=== PATIENT | female | born 1990 | race Caucasian/White ===

== ENCOUNTER → 2016-04-02 | Outpatient (CLI) | payer BC ==
[~2016-04-02] MED LIST: ALBU1AER9 INH; BCPILLS PO; MISC80CA PO; MISCCAP80 PO; OXYC1TAB3 PO; PRLSR20 PO; [UNRECOGNIZED DRUG - OTHER] PO
== END | disposition home or self-care (01) ==
LOC: C.PAPS 15:34
PROVIDERS: ATTEND Obstetrics & Gynecology
DX: Z01.419 Encounter for gynecological examination (general) (routine) without abnormal findings (principal)

== ENCOUNTER → 2016-07-03 | Outpatient (CLI) | payer BC ==
[~2016-07-03] MED LIST changes: -OXYC1TAB3 PO
[2016-07-03 12:04] LABS: HEMATOCRIT 34.7 % (37-47); MEAN CORPUSCULAR HEMOGLOBIN 25.2 pg (25-34); MEAN CORPUSCULAR HGB CONC 32.3 g/dl (32-36); MEAN PLATELET VOLUME 10.2 fL (7.4-10.4); PLATELET COUNT 321 K/uL (130-400); RED BLOOD COUNT 4.45 M/uL (4.2-5.4); WHITE BLOOD COUNT 5.29 K/uL (4.8-10.8)
[2016-07-03 12:14] LABS: ESTIMATED AVERAGE GLUCOSE 126 mg/dl; HA1C FLAG Normal (Normal)
[2016-07-03 12:26] LABS: ALKALINE PHOSPHATASE 45 U/L (45-117); ALT/SGPT 21 U/L (12-78); AST/SGOT 15 U/L (15-37); BLOOD UREA NITROGEN 10 mg/dl (7-18); CREATININE 0.76 mg/dl (0.60-1.20); GLUCOSE,FASTING 91 mg/dl (70-99)
[2016-07-03 12:30] LABS: INSULIN FASTING 11.9 mU/L (3-25)
[2016-07-03 12:37] LABS: THYROID STIMULATING HORMONE 0.575 uIu/ml (0.300-4.500)
[2016-07-03 12:41] LABS: RUBELLA SCREEN IgG (AT CCH) IMMUNE (IMMUNE)
[2016-07-09 10:16] LABS: VARICELLA ZOS VIR IGG VALUE 810.1 INDEX
--- NOTE | 2016-07-09 12:36 | CODING QUERY MEDICAL NECESSITY ---
SUPPORTING DIAGNOSIS NEEDED Dr. Sosa, A supporting diagnosis is required for the test/procedure performed on this patient in order for us to be reimbursed by the patient's insurance. Please provide a supporting diagnosis for the following test/procedure listed below next to the test name along with your signature. *If there is no additional diagnosis for this patient that would support the following test/procedure please document that below next to the test/procedure. Test(s)/Procedure(s) that require a supporting diagnosis: * [id number] GLYCATED HEMOGLOBIN DIAGNOSIS: * ([id number]) VITAMIN D ASSAY DIAGNOSIS: DATE OF SERVICE: 07/03/16 Provider Signature: Date: Thank you Kiran Yepez Health Information Management Once completed, please kindly fax back to [phone] For questions please call [phone]
== END | disposition home or self-care (01) ==
LOC: C.LAB1850 09:15
PROVIDERS: ATTEND Specialist
DX: Z31.41 Encounter for fertility testing (principal); Z01.83 Encounter for blood typing; Z11.4 Encounter for screening for human immunodeficiency virus [HIV]; Z11.8 Encounter for screening for other infectious and parasitic diseases; Z13.0 Encounter for screening for diseases of the blood and blood-forming organs and certain disorders involving the immune mechanism; Z13.21 Encounter for screening for nutritional disorder; E28.2 Polycystic ovarian syndrome

== ENCOUNTER → 2016-07-10 | Outpatient (CLI) | payer BC ==
[~2016-07-10] MED LIST changes: +MethylPREDNISolone HOME PACK 16 MG TAB PO SCH
--- NOTE | 2016-07-10 11:02 | DIAGNOSTIC IMAGING REPORT ---
HYSTEROSALPINGOGRAM CLINICAL HISTORY: Infertility testing. COMPARISON STUDY: Pelvic ultrasound dated 11/03/2015. FINDINGS: Fluoroscopic assistance was provided to the tools and parts attendant in performing a hysterosalpingogram. The uterine cavity distends normally. No filling defects are identified. There is normal filling of the fallopian tubes, with free spillage of contrast into pelvis bilaterally. Fluoroscopy time: 0.2 minutes. IMPRESSION: Unremarkable hysterosalpingogram. The fallopian tubes are widely patent bilaterally. Electronically signed by: Alber Melendez M.D. 07/10/2016 10:59 AM Dictated Date/Time: 07/10/2016 10:59 AM
--- NOTE | 2016-07-10 11:30 | OPERATIVE REPORT ---
DATE OF OPERATION: 07/10/2016 PREOPERATIVE DIAGNOSIS: Fertility testing. POSTOPERATIVE DIAGNOSIS: Same. PROCEDURE: Injection of contrast media for hysterosalpingogram. SURGEON: Dr. Jessica Coyle. PROCEDURE: The patient placed on the fluoroscopy table in dorsolithotomy position. Speculum placed. Cervix cleansed with Betadine x3. Cervix grasped on the anterior lip with Allis clamp. [place] uterine manipulator primed with x-ray contrast media gently placed through the cervical os. The patient repositioned on the fluoroscopy table and procedure performed with radiologist present. Preliminary findings include normal uterine cavity, normal fill and spill bilateral fallopian tubes. At the end of the procedure, all instruments were removed. The patient tolerated the procedure well. Of note, pt told me she was given preprocedure meds due to history of allergy to dye and I asked her prior to procedure if she felt comfortable proceeding and she wanted to undergo the procedure well aware that dye would be used. I attest to the content of the Intraoperative Record and any orders documented therein. Any exceptions are noted below. MARCUS
== END | disposition home or self-care (01) ==
LOC: C.RAD 09:41
PROVIDERS: ATTEND Obstetrics & Gynecology
DX: Z31.41 Encounter for fertility testing (principal)

== ENCOUNTER → 2016-08-09 | Outpatient (CLI) | payer BC ==
[~2016-08-09] MED LIST changes: -MethylPREDNISolone HOME PACK 16 MG TAB PO SCH
[2016-08-12 19:40] LABS: HCT 37.4 % (35.0-45.0); HEMOGLOBIN A2 2.1 % (1.8-3.5); MCH 24.9 pg (27.0-33.0); MCV 77.8 FL (80.0-100.0); RBC 4.81 Mill/uL (3.80-5.10); RDW 14.9 % (11.0-15.0)
== END | disposition home or self-care (01) ==
LOC: C.LAB1850 09:07
PROVIDERS: ATTEND Specialist
DX: Z13.0 Encounter for screening for diseases of the blood and blood-forming organs and certain disorders involving the immune mechanism (principal); E61.1 Iron deficiency

== ENCOUNTER → 2016-09-10 | Outpatient (CLI) | payer BC | END | disposition home or self-care (01) | LOC: C.LAB1850 09:52 | PROVIDERS: ATTEND Specialist | DX: D56.0 Alpha thalassemia (principal) ==

== ENCOUNTER → 2016-10-01 | Outpatient (CLI) | payer BC ==
[2016-10-02 06:50] LABS: ESTIMATED AVERAGE GLUCOSE 123 mg/dl; HA1C FLAG Normal (Normal)
== END | disposition home or self-care (01) ==
LOC: C.LAB 17:30
PROVIDERS: ATTEND Specialist
DX: E28.2 Polycystic ovarian syndrome (principal)

== ENCOUNTER → 2016-10-22 | Outpatient (CLI) | payer BC | END | disposition home or self-care (01) | LOC: C.LAB1850 09:17 | PROVIDERS: ATTEND Specialist | DX: Z31.41 Encounter for fertility testing (principal) ==

== ENCOUNTER → 2016-11-13 | Outpatient (CLI) | payer BC | END | disposition home or self-care (01) | LOC: C.LAB1850 09:24 | PROVIDERS: ATTEND Specialist | DX: Z31.41 Encounter for fertility testing (principal) ==

== ENCOUNTER → 2016-12-10 | Outpatient (CLI) | payer BC ==
[2016-12-10 11:15] LABS: ESTIMATED AVERAGE GLUCOSE 123 mg/dl; HA1C FLAG Normal (Normal)
== END | disposition home or self-care (01) ==
LOC: C.LAB1850 09:13
PROVIDERS: ATTEND Specialist
DX: E28.2 Polycystic ovarian syndrome (principal)

== ENCOUNTER → 2017-03-05 | Outpatient (CLI) | payer BC | END | disposition home or self-care (01) | LOC: C.LAB 08:18 | PROVIDERS: ATTEND Specialist | DX: O09.00 Supervision of pregnancy with history of infertility, unspecified trimester (principal) ==

== ENCOUNTER → 2017-06-03 | Outpatient (CLI) | payer BC | END | disposition home or self-care (01) | LOC: C.LAB 07:44 | PROVIDERS: ATTEND Specialist | DX: Z32.00 Encounter for pregnancy test, result unknown (principal) ==

== ENCOUNTER → 2017-06-05 | Outpatient (CLI) | payer BC ==
--- NOTE | 2017-06-11 08:33 | CODING QUERY NO DIAGNOSIS ---
SUPPORTING DIAGNOSIS NEEDED A supporting diagnosis is required for the test/procedure performed on this patient in order for us to be reimbursed by the patient's insurance. Please provide a supporting diagnosis for the following test/procedure listed below next to the test name along with your signature. *If there is no additional diagnosis for this patient that would support the following test/procedure please document that below next to the test/procedure. Test(s)/Procedure(s) that require a supporting diagnosis: DOS: 06/05/17 * BETA-HCG, QUANTITATIVE FEMALE DIAGNOSIS: Provider Signature: Date: Thank you Brianna Hilton [employer] Information Management Once completed, please kindly fax back to [phone] For questions please call [phone]
== END | disposition home or self-care (01) ==
LOC: C.LAB 07:40
PROVIDERS: ATTEND Specialist
DX: Z01.89 Encounter for other specified special examinations (principal)

== ENCOUNTER → 2017-06-11 | Outpatient (CLI) | payer BC | END | disposition home or self-care (01) | LOC: C.LAB 13:00 | PROVIDERS: ATTEND Specialist | DX: Z32.00 Encounter for pregnancy test, result unknown (principal) ==

== ENCOUNTER → 2017-08-05 | Outpatient (CLI) | payer BC ==
[2017-08-05 10:36] LABS: HEP C IGG 13 YRS+OLDER_RFLX NEG (NEG)
== END | disposition home or self-care (01) ==
LOC: C.LAB1850 08:00
PROVIDERS: ATTEND Specialist
DX: Z11.3 Encounter for screening for infections with a predominantly sexual mode of transmission (principal); Z11.4 Encounter for screening for human immunodeficiency virus [HIV]; Z11.59 Encounter for screening for other viral diseases

== ENCOUNTER → 2017-11-11 | Outpatient (CLI) | payer BC ==
[~2017-11-11] MED LIST changes: +ENOX40IN SQ; +ESTR0.5T5 PO; +ESTR10IN2 INJ; +PRED-301 PO; +PRENTAB26 PO; +PROAIR INH; +PROG1INJ INJ; +[UNRECOGNIZED DRUG - CODE] TOP; +[UNRECOGNIZED DRUG - OTHER] PO
== END | disposition home or self-care (01) ==
LOC: C.LAB 07:35
PROVIDERS: ATTEND Specialist
DX: Z32.00 Encounter for pregnancy test, result unknown (principal)

== ENCOUNTER → 2017-11-13 | Outpatient (CLI) | payer BC | END | disposition home or self-care (01) | LOC: C.LAB 07:19 | PROVIDERS: ATTEND Specialist | DX: Z32.00 Encounter for pregnancy test, result unknown (principal) ==

== ENCOUNTER → 2017-11-15 | Outpatient (CLI) | payer BC | END | disposition home or self-care (01) | LOC: C.LAB 07:25 | PROVIDERS: ATTEND Specialist | DX: Z32.00 Encounter for pregnancy test, result unknown (principal) ==

== ENCOUNTER 2017-11-19 17:56 | Emergency (ER) | payer BC ==
[~2017-11-19] VITALS: Ht 165.1 cm; Wt 89.4 kg
[~2017-11-19 17:56] MED LIST changes: -ENOX40IN SQ; -ESTR0.5T5 PO; -ESTR10IN2 INJ; -PRED-301 PO; -PRENTAB26 PO; -PROAIR INH; -PROG1INJ INJ; -[UNRECOGNIZED DRUG - CODE] TOP; -[UNRECOGNIZED DRUG - OTHER] PO
[2017-11-19 18:03] VITALS: TEMP 37.3; Ht 165.1 cm; Wt 89.4 kg
[2017-11-19] MEDS ORDERED: SODIUM CHLORIDE 0.9% 1000ML 1,000 ML IV ONE (18:30)
[2017-11-19] MEDS ORDERED: SODIUM CHLORIDE 0.9% 1000ML 1,000 ML IV STA (18:30)
--- NOTE | 2017-11-19 18:45 | EMERGENCY ROOM VISIT NOTE ---
History First contact with patient: 18:14 Chief Complaint: ED VAG BLEEDING Stated Complaint: POSSIBLE MISCARRIAGE, 6 WKS History of Present Illness The patient is a 27 year old female who presents to the Emergency Room with complaints of vaginal bleeding. She is approximately 6 weeks apart and had an IVF done at [facility] on September 29. She says they only implanted one embryo. She had one miscarriage with IVF earlier this year. She says that they are using IVF as they do not want a pass on the brachial gene. She said Saturday morning she started having a small amount of reddish blood without any cramping she was seen by her OB group in the [place] area on Saturday and there was a small blood clot next the embryo today around 1:00 she started having bleeding that was heavier and she says she has passed some small clots without tissue she does have some intermittent cramps. No fever or chills. No fall or trauma. She has some minor left back pain from where she received her recent medication injections. No urinary symptoms. No chest pain shortness of breath or headache. Source of History: patient, spouse/significant other Onset: three days ago Position: other (vagina) Quality: other (bleeding) Timing: intermittent Associated Symptoms: + abdominal pain (intermittent cramps), + back pain, No fevers, No chills, No headache, No chest pain, No SOB, No urinary symptoms Review of Systems As above. All other systems reviewed were negative unless otherwise stated in history. At least 10 were reviewed Past Medical/Surgical History Medical Problems: (1) Asthma (2) Bronchitis (3) Cyst of ovary (4) Iron deficiency anemia (5) Irritable colon (6) Stomach problems Old medical records were reviewed. Nurse's notes were reviewed and I agree with. He does have a history of Crohn's disease which she says is stable with diet. No history of surgery or medications for this at present Family History Diabetes mellitus FH: cancer Hypertension Kidney disease or stones Social History Smoking Status: Never Smoker Alcohol Use: occasionally Marital Status: single Occupation Status: [employer] student Current/Historical Medications Scheduled Enoxaparin (Lovenox), 40 MG SQ DAILY Estradiol (Estrace), 1 TAB PO BID Estradiol Valerate (Delestrogen), 0.2 ML INJ Q2D Inositol & W-Cvtjs-Bdsyfkoa (Ovasitol 2000-50 mg), TOP BID Multivit/Min/Iron/Fol Ac/Pren ( Vitamin), 1 TAB PO DAILY Prednisone (Prednisone), 5 MG PO DAILY Progesterone (Progesterone), 1 ML INJ DAILY [Jules Q 10], 1 TAB PO DAILY [Proair], 2 PUFF INH PRN UD Physical Exam Vital Signs Date Time Temp Pulse Resp B/P (MAP) Pulse Ox O2 Delivery O2 Flow Rate FiO2 11/19/17 22:15 80 135/70 99 11/19/17 19:45 89 18 116/60 100 Room Air 11/19/17 18:03 37.3 100 20 145/83 99 Room Air Physical Exam General: Well developed well nourished young female who appears in no acute distress, breathing comfortably on room air. Normal speech HEENT: Normal cephalic atraumatic. Pupils are equal round and reactive to light. Clear anicteric extraocular movements are intact. Oropharynx is pink with moist mucous membranes. No swelling of the mouth lips or tongue. Neck: Supple with a midline trachea. No meningeal signs or stiffness, no JVD or bruits. No Stridor. Chest: Clear to auscultation bilaterally. No wheezes or rhonchi. No increased work of breathing. Heart: Regular rate and rhythm without murmurs or gallops. Abdomen: Soft nontender, nondistended without rebound guarding or rigidity. Extremities: No cyanosis clubbing or edema. No calf tenderness or assymetry Spine/Back. Non tender to palpation. No CVA tenderness Skin: Good turgor without rashes. Neurologic exam: Cranial nerves two through 12 are intact. Motor and sensation are intact and symmetrical throughout. Medical Decision & Procedures ER Provider Diagnostic Interpretation: Radiology results as stated below per my review and radiologist interpretation: ULTRASOUND OF THE PELVIS CLINICAL HISTORY: . Vaginal bleeding. COMPARISON STUDY: No priors. TECHNIQUE: Real-time, grayscale, and color flow sonography of the pelvis is performed both transabdominally and endovaginally. Images are reviewed in the transverse and longitudinal planes. FINDINGS: Uterus: The uterus is normal in size and echotexture, measuring 8.8 x 3.8 x 3.5 cm. Gestation: There is a single uterine gestation. The mean gestational sac diameter measures 1.09 cm, corresponding to an estimated age of 5 weeks 1 day. A yolk sac is identified. A pole is not visualized. Ovaries: The ovaries are normal in size and morphology. The right ovary measures 2.6 x 1.3 x 2.8 cm and the left ovary measures 3.1 x 1.5 x 2.3 cm. Small follicles are seen bilaterally. Normal Doppler waveforms are shown within both ovaries. Pelvis: There is trace free fluid in the cul-de-sac. No concerning adnexal lesion is seen. IMPRESSION: 1. There is a single intrauterine gestation with an estimated age of 5 weeks 1 day by mean gestational sac diameter measurement. 2. A pole was not visualized, possibly due to early gestational age. Close clinical, laboratory, and sonographic follow-up is recommended. 3. The ovaries are normal in appearance. 4. Trace free fluid is noted in the cul-de-sac. Electronically signed by: Alber Melendez M.D. 11/19/2017 9:26 PM Dictated Date/Time: 11/19/2017 9:22 PM Laboratory Results 11/19/17 18:46 Red Blood Count 4.83, Mean Corpuscular Volume 81.6, Mean Corpuscular Hemoglobin 27.1, Mean Corpuscular Hemoglobin Concent 33.2, Mean Platelet Volume 9.2, Neutrophils (%) (Auto) 76.9, Lymphocytes (%) (Auto) 15.2, Monocytes (%) (Auto) 7.1, Eosinophils (%) (Auto) 0.3, Basophils (%) (Auto) 0.2, Neutrophils # (Auto) 10.23, Lymphocytes # (Auto) 2.03, Monocytes # (Auto) 0.95, Eosinophils # (Auto) 0.04, Basophils # (Auto) 0.03 11/19/17 18:46 Test 11/19/17 18:05 11/19/17 18:46 Urine Color YELLOW Urine Appearance CLEAR (CLEAR) Urine pH 6.0 (4.5-7.5) Urine Specific [place] 1.020 (1.000-1.030) Urine Protein NEG (NEG) Urine Glucose (UA) NEG (NEG) Urine Ketones NEG (NEG) Urine Occult Blood 3+ (NEG) Urine Nitrite NEG (NEG) Urine Bilirubin NEG (NEG) Urine Urobilinogen NEG (NEG) Urine Leukocyte Esterase NEG (NEG) Urine WBC (Auto) 1-5 /hpf (0-5) Urine RBC (Auto) >30 /hpf (0-4) Urine Hyaline Casts (Auto) 1-5 /lpf (0-5) Urine Epithelial Cells (Auto) 5-10 /lpf (0-5) Urine Bacteria (Auto) NEG (NEG) Urine Yeast (Auto) (NONE PRSENT) White Blood Count 13.32 K/uL (4.8-10.8) Red Blood Count 4.83 M/uL (4.2-5.4) Hemoglobin 13.1 g/dL (12.0-16.0) Hematocrit 39.4 % (37-47) Mean Corpuscular Volume 81.6 fL (80-100) Mean Corpuscular Hemoglobin 27.1 pg (25-34) Mean Corpuscular Hemoglobin Concent 33.2 g/dl (32-36) Platelet Count 332 K/uL (130-400) Mean Platelet Volume 9.2 fL (7.4-10.4) Neutrophils (%) (Auto) 76.9 % Lymphocytes (%) (Auto) 15.2 % Monocytes (%) (Auto) 7.1 % Eosinophils (%) (Auto) 0.3 % Basophils (%) (Auto) 0.2 % Neutrophils # (Auto) 10.23 K/uL (1.4-6.5) Lymphocytes # (Auto) 2.03 K/uL (1.2-3.4) Monocytes # (Auto) 0.95 K/uL (0.11-0.59) Eosinophils # (Auto) 0.04 K/uL (0-0.5) Basophils # (Auto) 0.03 K/uL (0-0.2) RDW Standard Deviation 43.0 fL (36.4-46.3) RDW Coefficient of Variation 14.4 % (11.5-14.5) Immature Granulocyte % (Auto) 0.3 % Immature Granulocyte # (Auto) 0.04 K/uL (0.00-0.02) Prothrombin Time 9.4 SECONDS (9.0-12.0) Prothromb Time International Ratio 0.9 (0.9-1.1) Activated Partial Thromboplast Time 23.7 SECONDS (21.0-31.0) Partial Thromboplastin Ratio 0.9 Anion Gap 7.0 mmol/L (3-11) Est Creatinine Clear Calc Drug Dose 131.4 ml/min Estimated GFR () 135.3 Estimated GFR (Non- 116.7 BUN/Creatinine Ratio 13.6 (10-20) Calcium Level 8.6 mg/dl (8.5-10.1) Total Bilirubin 0.2 mg/dl (0.2-1) Direct Bilirubin < 0.1 mg/dl (0-0.2) Aspartate Amino Transf (AST/SGOT) 14 U/L (15-37) Alanine Aminotransferase (ALT/SGPT) 22 U/L (12-78) Alkaline Phosphatase 44 U/L (45-117) Total Protein 7.2 gm/dl (6.4-8.2) Albumin 3.1 gm/dl (3.4-5.0) Lipase 176 U/L (73-393) Human Chorionic Gonadotropin, Quant 32065 mIU/mL Laboratory studies as stated above per my review. Medications Administered Medications (Trade) Dose Ordered Sig/Narinder Route Start Time Stop Time Status Last Admin Dose Admin Sodium Chloride 1,000 ml @ 999 mls/hr Q1H1M STAT IV 11/19/17 18:30 11/19/17 19:30 DC 11/19/17 18:30 999 MLS/HR Sodium Chloride 1,000 ml @ 150 mls/hr Q6H40M ONCE IV 11/19/17 18:30 11/19/17 22:40 DC 11/19/17 20:49 150 MLS/HR ED Course 1813: Past medical records reviewed. The patient was evaluated in room B02, and a complete history and physical examination were performed. 1829: Ordered Sodium Chloride 1000 ml @ 150 mls/hr IV, Sodium Chloride 1000 ml @ 999 mls/hr IV 2005: I reevaluated the patient. She is resting comfortably. 2128: I reevaluated the patient and updated her of her test results. 2138: I discussed the patient's case with Dr. Hills, SAIL REPAIR PERSON. The patient should follow up as an outpatient. 2150: Upon reevaluation, the patient is resting. I discussed the results and treatment plan with her. She verbalized agreement of the treatment plan. The patient was discharged home. Medical Decision Differential diagnosis includes , vaginal bleeding, miscarriage, anemia , ectopic , infection, electrolyte or metabolic abnormality This patient comes in as described above. She was placed in room B2. She had recent IVF and now has some vaginal bleeding she has been hemodynamically stable. She tells me the only and plans one embryo and she had an ultrasound which showed an IUP couple days ago. I reviewed her records here and she does have blood type A positive therefore she does not need RhoGam. I did order ultrasound IV fluids as well as multiple blood testing including quantitative beta-hCG. She was reassessed frequently. She has remained hemodynamic is stable. Her quantitative hCG is over 10,000 has gone up significantly than 4 days ago. Her ultrasound does show a intrauterine with a gestational sac no definite pole seen. At this point, she still may have a viable given these 2 facts. She has been hemodynamic is stable. I did discuss case with Dr. Hills, the on-call aviation program manager ,she recommends that she follow-up closely with her aviation program manager from [facility]. She is going to follow-up with that with him tomorrow or return to the ER if: increasing pain or bleeding, worsening of symptoms, fever chills, any new problems or concerns. Medication Reconcilliation Current Medication List: was personally reviewed by me Blood Pressure Screening Patient's blood pressure: Elevated blood pressure Blood pressure disposition: Elevated BP felt to be situational Consults Time Called: 2130 Consulting Physician: Dr. Hills, SAIL REPAIR PERSON Returned Call: 2138 I discussed the patient's case with Dr. Hills, SAIL REPAIR PERSON. The patient should follow up as an outpatient. Impression Primary Impression: Vaginal bleeding Additional Impression: Normal IUP (intrauterine ) on ultrasound Departure Information Dispostion Home / Self-Care Referrals Diya Rush D.O. (PCP) Forms HOME CARE DOCUMENTATION FORM, IMPORTANT VISIT INFORMATION, WORK / SCHOOL INSTRUCTIONS Patient Instructions My [facility] [employer] Additional Instructions Rest. Drink plenty of fluids Return if: Worsening of symptoms, increasing bleeding, lightheadedness or dizziness, passing large clots or tissue Call and talk to your doctor at [facility] and be seen tomorrow Problem Qualifiers Additional Impression: Normal IUP (intrauterine ) on ultrasound Trimester: first trimester Qualified Codes: Z34.91 - Encounter for supervision of normal , unspecified, first trimester
[2017-11-19 18:59] LABS: BASO % 0.2 %; BASO ABS # 0.03 K/uL (0-0.2); EOS % 0.3 %; EOS ABS # 0.04 K/uL (0-0.5); HEMATOCRIT 39.4 % (37-47); HEMOGLOBIN 13.1 g/dL (12.0-16.0); IG# 0.04 K/uL (0.00-0.02); LYMPH % 15.2 %; LYMPH ABS # 2.03 K/uL (1.2-3.4); MEAN CELL VOLUME 81.6 fL (80-100); MEAN CORPUSCULAR HEMOGLOBIN 27.1 pg (25-34); MEAN CORPUSCULAR HGB CONC 33.2 g/dl (32-36); MEAN PLATELET VOLUME 9.2 fL (7.4-10.4); MONO % 7.1 %; MONO ABS # 0.95 K/uL (0.11-0.59); NEUT % 76.9 %; NEUT ABS # 10.23 K/uL (1.4-6.5); PLATELET COUNT 332 K/uL (130-400); RED CELL DISTRIBUTION WIDTH CV 14.4 % (11.5-14.5); WHITE BLOOD COUNT 13.32 K/uL (4.8-10.8)
[2017-11-19 19:10] LABS: INR 0.9 (0.9-1.1); PTT PATIENT 23.7 SECONDS (21.0-31.0)
[2017-11-19 19:20] LABS: ALBUMIN 3.1 gm/dl (3.4-5.0); ALKALINE PHOSPHATASE 44 U/L (45-117); ALT/SGPT 22 U/L (12-78); AST/SGOT 14 U/L (15-37); BLOOD UREA NITROGEN 10 mg/dl (7-18); CALCIUM 8.6 mg/dl (8.5-10.1); CARBON DIOXIDE 25 mmol/L (21-32); CREATININE 0.71 mg/dl (0.60-1.20); GLUCOSE 89 mg/dl (70-99); LIPASE 176 U/L (73-393); POTASSIUM 4.4 mmol/L (3.5-5.1); SODIUM 141 mmol/L (136-145); TOTAL PROTEIN 7.2 gm/dl (6.4-8.2)
[2017-11-19] MEDS ORDERED: PROAIR INH (20:13)
[2017-11-19] MEDS ORDERED: [UNRECOGNIZED DRUG - CODE] TOP (20:28)
[2017-11-19] MEDS ORDERED: PRENTAB26 PO (20:28)
[2017-11-19] MEDS ORDERED: ENOX40IN SQ (20:28)
[2017-11-19] MEDS ORDERED: [UNRECOGNIZED DRUG - OTHER] PO (20:28)
[2017-11-19] MEDS ORDERED: ESTR10IN2 INJ (20:28)
[2017-11-19] MEDS ORDERED: ESTR0.5T5 PO (20:28)
[2017-11-19] MEDS ORDERED: PROG1INJ INJ (20:28)
[2017-11-19] MEDS ORDERED: PRED-301 PO (20:30)
--- NOTE | 2017-11-19 21:27 | DIAGNOSTIC IMAGING REPORT ---
ULTRASOUND OF THE PELVIS CLINICAL HISTORY: . Vaginal bleeding. COMPARISON STUDY: No priors. TECHNIQUE: Real-time, grayscale, and color flow sonography of the pelvis is performed both transabdominally and endovaginally. Images are reviewed in the transverse and longitudinal planes. FINDINGS: Uterus: The uterus is normal in size and echotexture, measuring 8.8 x 3.8 x 3.5 cm. Gestation: There is a single uterine gestation. The mean gestational sac diameter measures 1.09 cm, corresponding to an estimated age of 5 weeks 1 day. A yolk sac is identified. A pole is not visualized. Ovaries: The ovaries are normal in size and morphology. The right ovary measures 2.6 x 1.3 x 2.8 cm and the left ovary measures 3.1 x 1.5 x 2.3 cm. Small follicles are seen bilaterally. Normal Doppler waveforms are shown within both ovaries. Pelvis: There is trace free fluid in the cul-de-sac. No concerning adnexal lesion is seen. IMPRESSION: 1. There is a single intrauterine gestation with an estimated age of 5 weeks 1 day by mean gestational sac diameter measurement. 2. A pole was not visualized, possibly due to early gestational age. Close clinical, laboratory, and sonographic follow-up is recommended. 3. The ovaries are normal in appearance. 4. Trace free fluid is noted in the cul-de-sac. Electronically signed by: Alber Melendez M.D. 11/19/2017 9:26 PM Dictated Date/Time: 11/19/2017 9:22 PM
[2017-11-19 22:15] VITALS: BP 135/70; PULSE 80; O2SAT 99
== END 2017-11-19 22:16 | disposition home or self-care (01) ==
LOC: C.EDB 17:57
DX: O20.9 Hemorrhage in early pregnancy, unspecified (principal); Z3A.01 Less than 8 weeks gestation of pregnancy; Z79.01 Long term (current) use of anticoagulants; Z79.899 Other long term (current) drug therapy; Z79.52 Long term (current) use of systemic steroids